=== PATIENT | male | born 1960 | race American Indian/Alaskan Native ===

== ENCOUNTER 2019-09-17 10:12 | Emergency (ER) | payer MEDICARE ==
[2019-09-17 10:18] VITALS: BP 146/101
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
== END 2019-09-17 12:50 | disposition home or self-care (01) ==
LOC: ED 10:12
DX: M54.5 Low back pain (principal); F17.200 Nicotine dependence, unspecified, uncomplicated; V89.2XXA Person injured in unspecified motor-vehicle accident, traffic, initial encounter; Y92.488 Other paved roadways as the place of occurrence of the external cause; Y93.89 Activity, other specified; Y99.9 Unspecified external cause status
CPT/HCPCS: 99282